=== PATIENT | female | born 1950 | race Caucasian/White ===

== ENCOUNTER 2023-09-12 07:01 | Inpatient (IN) | payer OTHER ==
[2023-09-07 13:10] LABS: BASOPHILS # (AUTO) 0.1 K/uL (0.0-0.2); BASOPHILS % (AUTO) 1.1 % (0.0-2.0); EOSINOPHILS # (AUTO) 0.4 K/uL (0.0-0.4); EOSINOPHILS % (AUTO) 5.8 % (0.0-4.0); HEMATOCRIT 35.4 % (36-48); HEMOGLOBIN 11.7 g/dL (12.0-16.0); LYMPHOCYTES # (AUTO) 2.1 K/uL (1.0-5.5); LYMPHOCYTES % (AUTO) 33.8 % (20.5-51.5); MEAN CORPUSCULAR HEMOGLOBIN 32 pg (27-31); MEAN CORPUSCULAR HGB CONC 33 % (32-36); MEAN CORPUSCULAR VOLUME 96 fL (79.0-98.0); MONOCYTES # (AUTO) 0.6 K/uL (0.0-1.0); MONOCYTES % (AUTO) 8.8 % (1.7-9.3); NEUTROPHILS # (AUTO) 3.2 K/uL (1.8-7.7); NEUTROPHILS % (AUTO) 50.5 % (40.0-70.0); PLATELET COUNT (AUTO) 345 K/uL (130-430); RED CELL DISTRIBUTION WIDTH 14.8 % (9.0-15.0); WHITE BLOOD COUNT (AUTO) 6.3 K/uL (4.8-10.8)
[2023-09-07 13:23] LABS: INR 0.9 (0.8-1.2); PROTHROMBIN TIME 9.7 SECS (9.5-12.5)
[2023-09-07 13:24] LABS: ALANINE AMINOTRANSFERASE 18 U/L (12-78); ALBUMIN 3.5 g/dL (3.4-4.8); ANION GAP 11 (5-15); ASPARTATE AMINOTRANSFERASE 22 U/L (10-37); CALCIUM 9.6 mg/dL (8.4-11.0); CARBON DIOXIDE 27 mmol/L (23-29); CHLORIDE 103 mmol/L (98-107); GLUCOSE 99 mg/dL (74-106); POTASSIUM 5.1 mmol/L (3.5-5.1); SODIUM SERUM 141 mmol/L (136-145); TOTAL BILIRUBIN 0.6 mg/dL (0.0-1.0); TOTAL PROTEIN, SERUM 8.3 g/dL (6.4-8.3); UREA NITROGEN, BLOOD 11 mg/dL (8-21)
[~2023-09-12] VITALS: Ht 162.6 cm; Wt 103.4 kg
[2023-09-12] MEDS: CEFAZOLIN SOD 2 GM in D5W 50 ML IV ONE (07:00)
[2023-09-12] MEDS: GABAPENTIN 300 MG CAPSULE ONE (07:11)
[2023-09-12] MEDS: ACETAMINOPHEN 500 MG TABLET ONE (07:11)
[2023-09-12] MEDS: GABAPENTIN 300 MG CAPSULE PO ONE (08:04)
[2023-09-12] MEDS: ACETAMINOPHEN 500 MG TABLET PO ONE (08:04)
[2023-09-12] MEDS ORDERED: DEXAMETHASONE SOD PHOSPHATE 4 MG/ML VIAL ONE (10:00)
[2023-09-12] MEDS ORDERED: MIDAZOLAM HCL 2 MG/2 ML VIAL (VERSED) ONE (10:00)
[2023-09-12] MEDS ORDERED: WATER FOR IRRIGATION,STERILE 1,000 ML IRRIG.SOLN IR ONE (10:00)
[2023-09-12] MEDS ORDERED: fentaNYL CITRATE/PF 100 MCG/2 ML AMP ONE (10:00)
[2023-09-12] MEDS ORDERED: BUPIVACAINE /PF 0.25% 30 ML VIAL INJ ONE (10:00)
[2023-09-12] MEDS ORDERED: PROPOFOL 200MG/ 20ML VIAL (DIPRIVAN) IV ONE (10:00)
[2023-09-12] MEDS ORDERED: BUPIVACAINE /DEX PF 0.75% SPINAL 2 ML AMP INJ ONE (10:00)
[2023-09-12] MEDS ORDERED: NS IRRIG SOLN 1000 ML IR ONE (10:00)
[2023-09-12] MEDS ORDERED: ONDANSETRON HCL 4 MG/2 ML VIAL ONE (10:00)
[2023-09-12] MEDS ORDERED: LR 1,000 ML IV.SOLN IV ONE (10:00)
[2023-09-12] MEDS ORDERED: TRANEXAMIC ACID 1,000 MG/10 ML VIAL ONE (10:00)
[2023-09-12] MEDS ORDERED: VANCOMYCIN HCL 1000 MG/VIAL IV ONE (10:00)
[2023-09-12] MEDS ORDERED: LORATADINE 10 MG TABLET PO PRN (11:00)
[2023-09-12] MEDS ORDERED: METOCLOPRAMIDE HCL 10 MG/2 ML VIAL IVP PRN ×2 (11:00→12:30)
[2023-09-12] MEDS: LR 1,000 ML IV SCH (11:00)
[2023-09-12] MEDS ORDERED: MIDAZOLAM HCL 2 MG/2 ML VIAL (VERSED) IVP PRN (11:00)
[2023-09-12] MEDS ORDERED: MEPERIDINE HCL/PF 25 MG/ML DISP.SYRIN IVP PRN (11:00)
[2023-09-12] MEDS ORDERED: HYDROmorphone 1 MG/ML INJ. CARTRIDGE IVP PRN ×4 (11:00)
[2023-09-12] MEDS ORDERED: ENAL-79 PO (11:32)
[2023-09-12] MEDS ORDERED: METO25TA3 PO (11:32)
[2023-09-12] MEDS ORDERED: LIP20 PO (11:32)
[2023-09-12] MEDS ORDERED: METO50TA7 PO (11:33)
[2023-09-12] MEDS ORDERED: ONDANSETRON HCL 4 MG/2 ML VIAL IVP PRN (11:45)
[2023-09-12] MEDS ORDERED: LACTULOSE 20 GM/30 ML UDC PO PRN (12:30)
[2023-09-12] MEDS ORDERED: NALOXONE HCL 2 MG/2 ML SYR IVP PRN ×3 (12:30)
[2023-09-12] MEDS ORDERED: BISACODYL 10 MG/SUPPOSITORY RC PRN (12:30)
[2023-09-12] MEDS ORDERED: DIPHENHYDRAMINE HCL 25 MG CAPSULE PO PRN (12:30)
[2023-09-12 16:10] VITALS: BP_SYST 140; PULSE 80; RESP 18; TEMP 97.9; O2SAT 97
[2023-09-12] MEDS: oxyCODONE HCL 5 MG TABLET PO PRN (17:08)
[2023-09-12] MEDS: ceFAZolin SODIUM 2 GM in D5W 50 ML IV SCH (17:08)
[2023-09-12] MEDS: HYDROmorphone 1 MG/ML INJ. CARTRIDGE IVP PRN (17:39)
[2023-09-12] MEDS: METOPROLOL SUCCINATE 50 MG TAB.SR.24H (TOPROL XL) PO ONE (18:30)
[2023-09-12 20:48] LABS: HEMATOCRIT 32.4 % (36-48); HEMOGLOBIN 10.7 g/dL (12.0-16.0)
[2023-09-12] MEDS: SENNOSIDES/DOCUSATE SODIUM 1 TAB TABLET(SENOKOT-S) PO SCH (21:00)
[2023-09-12] MEDS: KETOROLAC TROMETHAMINE 10 MG TABLET (TORADOL) PO SCH (21:59)
[2023-09-13] VITALS (7 sets, daily range): BP systolic 112–146; PULSE 73–95; RESP 18–20; TEMP 96.8–99.3; O2SAT 93–100
[2023-09-13] MEDS: ASPIRIN 81 MG TAB.CHEW PO SCH (10:14)
[2023-09-13] MEDS: METOPROLOL SUCCINATE 50 MG TAB.SR.24H (TOPROL XL) PO SCH (10:16)
[2023-09-13] MEDS: CELECOXIB 200 MG CAPSULE PO SCH (10:16)
[2023-09-13] MEDS: traMADol HCL HCL 50 MG TABLET (ULTRAM) PO PRN (13:43)
[2023-09-13] MEDS: oxyCODONE HCL 5 MG TABLET PO PRN (18:41)
[2023-09-13] MEDS: ACETAMINOPHEN 500 MG TABLET PO SCH (22:31)
[2023-09-14 00:05] VITALS: BP_SYST 144; PULSE 72; RESP 18; TEMP 97.4; O2SAT 95
[2023-09-14 08:00] VITALS: BP_SYST 145; PULSE 64; RESP 18; TEMP 97.1; O2SAT 94
[2023-09-14 11:36] VITALS: BP_SYST 137; PULSE 69; RESP 17; TEMP 97.2; O2SAT 97
[2023-09-14 14:34] VITALS: BP_SYST 140; PULSE 67; RESP 18; TEMP 97.3; O2SAT 95
[2023-09-14 15:36] VITALS: BP_SYST 143; PULSE 70; RESP 18; TEMP 98.4; O2SAT 92
== END 2023-09-14 16:46 | disposition home health service (06) | DRG 470 ==
LOC: SMU 07:01 → INTOOBSV 07:01 → OBSVTOIN 07:01 → SMU 14:55 → STU 20:05 → SMU 09-13 08:24
PROVIDERS: ADMIT Orthopaedic Surgery Sports Medicine; ATTEND Orthopaedic Surgery Sports Medicine
PROC: 0SRD0J9 Replacement of Left Knee Joint with Synthetic Substitute, Cemented, Open Approach (ICD-10-PCS; principal; 2023-09-12 10:05)
DX: M17.12 Unilateral primary osteoarthritis, left knee (principal)
CPT/HCPCS: 36415; 71045; 71046; 73564; 80053; 85018; 85025; 85610; 85730; 87081; 88305; 88311; 96379; 97110-GP; 97116-GP; 97530-GP; C1713; C1776; G0378; J0690; J1100; J1170; J2405; J2704; J3010; J3370; J3465; J3490; J7060; J7120